=== PATIENT | female | born 1975 | race Caucasian/White ===

== ENCOUNTER 2016-11-06 10:13 | Inpatient (IN) | payer OTHER ==
[~2016-11-06] VITALS: Ht 165.1 cm; Wt 100.9 kg
[2016-11-06] MEDS ORDERED: OXYTOCIN 30U/ 0.9% NaCL 500ML 500 ML IV SCH (10:24)
[2016-11-06] MEDS ORDERED: LACTATED RINGERS 1,000 ML IV SCH ×2 (10:24→10:30)
[2016-11-06] MEDS ORDERED: METOCLOPRAMIDE 5 MG/ML, 2ML IV ONE (10:30)
[2016-11-06] MEDS ORDERED: SODIUM CITRATE/CITRIC ACID 30 ML UDC PO ONE (10:30)
[2016-11-06] MEDS ORDERED: LACTATED RINGERS 1,000 ML IVBOLUS ONE (10:30)
[2016-11-06] MEDS ORDERED: SODIUM CITRATE/CITRIC ACID 30 ML UDC ONE ×2 (10:36→12:27)
[2016-11-06] MEDS ORDERED: METOCLOPRAMIDE 5 MG/ML, 2ML ONE ×2 (10:36→12:27)
[2016-11-06] MEDS ORDERED: OXYTOCIN 30U/ 0.9% NaCL 500ML 500 ML ONE (10:37)
[2016-11-06] MEDS ORDERED: NEWBORN KIT ONE (10:37)
[2016-11-06] MEDS ORDERED: PREN1TAB60 PO (10:47)
[2016-11-06] MEDS ORDERED: DEXT15SY5 PO (10:47)
[2016-11-06] MEDS ORDERED: FENTANYL PF 100 MCG/2ML ONE ×2 (11:14→12:27)
[2016-11-06] MEDS ORDERED: FENTANYL PF 100 MCG/2ML IV PRN (11:30)
[2016-11-06] MEDS ORDERED: EPHEDRINE 50 MG/ML, 1ML IVPush PRN (11:30)
[2016-11-06] MEDS ORDERED: LABETALOL 5MG/ML, 20ML IV PRN (11:30)
[2016-11-06] MEDS ORDERED: HYDROcodone/APAP 7.5-325MG/15ML UDC PO PRN (11:30)
[2016-11-06] MEDS ORDERED: MEPERIDINE/PF 25MG/0.5ML IVPush PRN (11:30)
[2016-11-06] MEDS ORDERED: ONDANSETRON 2MG/ML, 2ML IVPush PRN (11:30)
[2016-11-06] MEDS ORDERED: OXYcodone 5 MG/5 ML ORAL.SOL UDC PO PRN (11:30)
[2016-11-06] MEDS ORDERED: hydrALAzine 20 MG/ML, 1ML IV PRN (11:30)
[2016-11-06] MEDS ORDERED: ALBUTEROL SULFATE 2.5 MG/3 ML NPPB PRN (11:30)
[2016-11-06] MEDS ORDERED: METOPROLOL 1 MG/ML, 5ML IV PRN (11:30)
[2016-11-06] MEDS ORDERED: ONDANSETRON 2MG/ML, 2ML ONE (12:27)
[2016-11-06] MEDS ORDERED: OXYTOCIN 10 UNITS/ML, 1ML ONE (12:27)
[2016-11-06] MEDS ORDERED: KETOROLAC 30 MG/1 ML ONE (12:27)
[2016-11-06] MEDS ORDERED: DEXAMETHASONE 4 MG/ML, 1ML ONE (12:27)
[2016-11-06] MEDS ORDERED: CEFAZOLIN 1,000 MG ONE (12:27)
[2016-11-06] MEDS: LACTATED RINGERS 1,000 ML IV SCH ×4 (13:44→23:44)
[2016-11-06] MEDS: OXYTOCIN 30U/ 0.9% NaCL 500ML 500 ML IV SCH ×2 (13:44→23:44)
[2016-11-06] MEDS ORDERED: CARBOPROST TROMETHAMINE 250 MCG/ML, 1ML IM PRN (14:00)
[2016-11-06] MEDS ORDERED: MEASLES,MUMPS&RUBELLA VACC/PF 0.5 ML SQ-VACC PRN (14:00)
[2016-11-06] MEDS ORDERED: DIPH,PERTUSS(ACELL),TET VAC/PF NC IM-VACC PRN (14:00)
[2016-11-06] MEDS ORDERED: SIMETHICONE 80 MG CHEW TAB PO PRN (14:00)
[2016-11-06] MEDS ORDERED: BISACODYL 10 MG SUPP PR PRN (14:00)
[2016-11-06] MEDS ORDERED: BUTORPHANOL 1 MG/ML, 1ML IV PRN (14:00)
[2016-11-06] MEDS ORDERED: OXYcodone IR 5MG TABLET PO PRN (14:00)
[2016-11-06] MEDS ORDERED: ACETAMINOPHEN 325 MG TABLET PO PRN (14:00)
[2016-11-06] MEDS ORDERED: MISOPROSTOL 200 MCG TABLET PR PRN (14:00)
[2016-11-06] MEDS ORDERED: ONDANSETRON 2MG/ML, 2ML IV PRN (14:00)
[2016-11-06] MEDS ORDERED: MEPERIDINE/PF 25MG/0.5ML IM PRN (14:00)
[2016-11-06 16:56] VITALS: BP 112/63
[2016-11-06] MEDS: OXYcodone/APAP 5/325MG TABLET PO PRN ×2 (19:00→23:23)
[2016-11-06] MEDS: KETOROLAC 30 MG/1 ML IV SCH (19:00)
[2016-11-06 19:20] VITALS: BP 114/73
[2016-11-06] MEDS: DOCUSATE 100 MG CAPSULE PO PRN (23:23)
[2016-11-07] MEDS: KETOROLAC 30 MG/1 ML IV SCH ×4 (00:38→19:35)
[2016-11-07 00:39] VITALS: BP 104/62
[2016-11-07] MEDS ORDERED: OXYC-302 PO (01:57)
[2016-11-07] MEDS ORDERED: IBUP-1222 PO (01:58)
[2016-11-07 03:55] VITALS: BP 100/60
[2016-11-07] MEDS: OXYcodone/APAP 5/325MG TABLET PO PRN ×4 (05:13→23:13)
[2016-11-07] MEDS: GUAIFENESIN/DM 200-20MG, 10ML UDC PO PRN ×2 (05:13→19:48)
[2016-11-07] MEDS: LACTATED RINGERS 1,000 ML IV SCH ×5 (05:31→21:44)
[2016-11-07 08:33] VITALS: BP 109/68
[2016-11-07] MEDS: PRENATAL VIT/IRON/FA 1 EACH TABLET PO SCH (09:22)
[2016-11-07] MEDS: DOCUSATE 100 MG CAPSULE PO PRN ×2 (09:22→19:35)
[2016-11-07] MEDS: OXYTOCIN 30U/ 0.9% NaCL 500ML 500 ML IV SCH ×2 (09:44→19:44)
[2016-11-07 11:38] VITALS: BP 105/66
[2016-11-07 19:10] VITALS: BP 122/68
[2016-11-08] MEDS: KETOROLAC 30 MG/1 ML IV SCH ×3 (01:59→13:00)
[2016-11-08] MEDS: OXYTOCIN 30U/ 0.9% NaCL 500ML 500 ML IV SCH (05:44)
[2016-11-08] MEDS: LACTATED RINGERS 1,000 ML IV SCH ×3 (05:44→13:44)
[2016-11-08] MEDS: OXYcodone/APAP 5/325MG TABLET PO PRN ×2 (06:38→12:15)
[2016-11-08 08:50] VITALS: BP 110/71
[2016-11-08] MEDS: DOCUSATE 100 MG CAPSULE PO PRN (09:00)
[2016-11-08] MEDS: PRENATAL VIT/IRON/FA 1 EACH TABLET PO SCH (09:00)
[2016-11-08] MEDS ORDERED: IBUPROFEN 600 MG TABLET PO PRN (14:00)
== END 2016-11-08 15:30 | disposition home or self-care (01) | DRG 766 ==
LOC: LDIP 10:13 → 2NW 15:56
PROVIDERS: ADMIT Obstetrics & Gynecology Maternal & Fetal Medicine; ATTEND Obstetrics & Gynecology Maternal & Fetal Medicine
PROC: 10D00Z1 Extraction of Products of Conception, Low, Open Approach (ICD-10-PCS; principal; 2016-11-06)
PROC: 0UB70ZZ Excision of Bilateral Fallopian Tubes, Open Approach (ICD-10-PCS; 2016-11-06)
DX: O34.211 Maternal care for low transverse scar from previous cesarean delivery (principal); Z37.0 Single live birth; O99.824 Streptococcus B carrier state complicating childbirth; O69.81X0 Labor and delivery complicated by cord around neck, without compression, not applicable or unspecified; Z3A.39 39 weeks gestation of pregnancy; Z30.2 Encounter for sterilization; Z23 Encounter for immunization
CPT/HCPCS: 36415; 85025; 86850; 86900; 88302; 90715; 93005; J0690; J1100; J1885; J2405; J3010; J2590; J2765; J7120

== ENCOUNTER 2020-02-28 10:35 | Emergency (ER) | payer OTHER ==
[~2020-02-28] VITALS: Ht 157.5 cm; Wt 100.0 kg
[~2020-02-28 10:35] MED LIST: DEXT15SY9 PO; IBUP-1222 PO; OXYC-302 PO; PREN1TAB60 PO
[2020-02-28] MEDS ORDERED: HYDROcodone/APAP 5/325 TABLET ONE (10:59)
[2020-02-28] MEDS ORDERED: HYDROcodone/APAP 10/325 MG TABLET PO ONE (11:00)
[2020-02-28] MEDS ORDERED: HYDROcodone/APAP 10/325 MG TABLET ONE (11:07)
--- NOTE | 2020-02-28 11:12 | NUR ---
PT STATES SHE "POPPED IT BACK IN WITH THE ICE". PT ALSO STATES HER PAIN WAS AT A 8/10 WHEN COMING IN BUT IT IS NOW AT A 4/10 AFTER "POPPING IT BACK IN".
[2020-02-28] MEDS ORDERED: ACETAMINOPHEN 500 MG TABLET ONE (11:36)
[2020-02-28 11:57] VITALS: BP 104/62
[2020-02-28] MEDS ORDERED: ACETAMINOPHEN 500 MG TABLET PO ONE (12:00)
== END 2020-02-28 12:02 | disposition home or self-care (01) ==
LOC: ED 11:27
DX: K43.9 Ventral hernia without obstruction or gangrene (principal); R10.33 Periumbilical pain; R06.7 Sneezing
CPT/HCPCS: 99283